=== PATIENT | male | born 1985 | race American Indian/Alaskan Native ===

== ENCOUNTER 2019-03-16 20:13 | Emergency (ER) | payer SELFPAY ==
[2019-03-16] MEDS ORDERED: NACL 0.9% 1000 ML 1,000 ML IV ONE ×2 (20:26)
[2019-03-16] MEDS ORDERED: NACL 0.9% 1000 ML 2,000 ML ONE (20:28)
--- NOTE | 2019-03-16 20:31 | Emergency Department Report ---
ED Head Trauma HPI - General Chief complaint: Weakness Stated complaint: DEHYDRATION Time Seen by Provider: 03/16/19 20:25 Source: patient, EMS Mode of arrival: Stretcher Limitations: No Limitations - History of Present Illness Initial comments: Mr. Mayer is a 33-year-old male with history of asthma who presents with closed head injury and muscle cramps today after a long day of playing basketball since 10 AM. He was playing in a basketball tournament. Prior to the injury he began cramping up. [place] dehydrated. He took an elbow to his right cheek. He immediately fell to the ground. Brief loss of consciousness. He's been drowsy ever since. Brought to emergency Department per EMS. He was tachycardic 115 beats a minute. EMS was unable to establish IV. EMS was unable to palpate a radial pulse. MD Complaint: head injury -: Sudden, This evening Mechanism of Injury: sports related injury Location: other (maxillary laceration) Loss of Consciousness: yes Previous Trauma to this Area: No Place: other (indoor basketball tournament) Severity: moderate Quality: dull Consistency: constant Provoking factors: none known, other (dehydration) Other Injuries: laceration Associated Symptoms: other (cramps drowsiness) - Related Data Allergies/Adverse reactions: Allergies Allergy/AdvReac Type Severity Reaction Status Date / Time No Known Allergies Allergy Verified 03/16/19 20:27 ED Review of Systems ROS: Stated complaint: DEHYDRATION Other details as noted in HPI Comment: All other systems reviewed and negative Constitutional: malaise. denies: fever Neurological: headache. denies: numbness, paresthesias ED Past Medical Hx - Past Medical History Previous Medical History?: Yes Hx Asthma: Yes - Surgical History Past Surgical History?: No - Social History Smoking Status: Current Every Day Smoker Substance Use Type: Marijuana ED Physical Exam - General Limitations: No Limitations General appearance: alert, in no apparent distress - Head Head exam: Present: atraumatic, normocephalic - Eye Eye exam: Absent: scleral icterus, conjunctival injection, nystagmus - ENT ENT exam: Present: mucous membranes moist - Neck Neck exam: Present: normal inspection, full ROM - Respiratory Respiratory exam: Present: normal lung sounds bilaterally. Absent: respiratory distress, wheezes, rales, rhonchi - Cardiovascular Cardiovascular Exam: Present: regular rate, normal rhythm, normal heart sounds. Absent: systolic murmur, diastolic murmur, rubs, gallop - GI/Abdominal GI/Abdominal exam: Present: soft, normal bowel sounds. Absent: distended, tenderness, guarding, rebound - Rectal Rectal exam: Present: deferred - Extremities Exam Extremities exam: Present: normal inspection - Back Exam Back exam: Present: normal inspection - Neurological Exam Neurological exam: Present: alert, oriented X3 - Psychiatric Psychiatric exam: Present: normal affect, normal mood - Skin Skin exam: Present: warm, dry, normal color, other (superficial 1.5 cm laceration right cheek). Absent: rash ED Course Vital Signs 03/16/19 03/16/19 03/16/19 20:22 20:30 22:51 Temperature 97.8 F Pulse Rate 84 93 H Respiratory 17 15 17 Rate Blood Pressure 123/93 123/68 [Left] O2 Sat by Pulse 96 98 97 Oximetry - Lab Data Result diagrams: 03/16/19 21:10 Lab Results 03/16/19 Range/Units 21:10 Sodium 138 (137-145) mmol/L Potassium 4.6 (3.6-5.0) mmol/L Chloride 100.7 (98-107) mmol/L Carbon Dioxide 22 (22-30) mmol/L Anion Gap 20 mmol/L BUN 20 (9-20) mg/dL Creatinine 1.2 (0.8-1.5) mg/dL Estimated GFR > 60 ml/min BUN/Creatinine Ratio 17 % Glucose 73 L (75-100) mg/dL Calcium 9.0 (8.4-10.2) mg/dL Total Creatine Kinase 642 H (55-170) units/L - Radiology Data Radiology results: report reviewed Ct head: NAP - Medical Decision Making 1. closed head injury CT head NAP 2. dehydration given IVF 3. superficial laceration right cheek wound care provided Critical care attestation.: If time is entered above; I have spent that time in minutes in the direct care of this critically ill patient, excluding procedure time. ED Disposition Clinical Impression: Closed head injury, Dehydration, Facial laceration Disposition: DC-01 TO HOME OR SELFCARE Is pt being admited?: No Does the pt Need Aspirin: No Condition: Stable Instructions: Minor Head Injury (ED), Laceration (ED), Dehydration (ED)
[2019-03-16] MEDS ORDERED: TYLENOL PO ONE (20:34)
--- NOTE | 2019-03-16 21:23 | Cat Scan Report ---
CT HEAD WITHOUT CONTRAST INDICATION / CLINICAL INFORMATION: TRAUMA. HEAD INJURY . TECHNIQUE: All CT scans at this location are performed using CT dose reduction for ALARA by means of automated e xposure control. COMPARISON: None available. FINDINGS: HEMORRHAGE: No evidence of intracranial hemorrhage or extra-axial fluid collection. EXTRA-AXIAL SPACES: Cortical sulci, sylvian fissures and basilar cisterns have an unremarkable appear ance. VENTRICULAR SYSTEM: The ventricular system is of normal size and configuration. CEREBRAL PARENCHYMA: No areas of abnormal brain parenchymal attenuation are identified. There is no i ndication of recent infarction. MIDLINE SHIFT OR HERNIATION: There is no mass effect. CEREBELLUM / BRAINSTEM: Brainstem and cerebellum have an unremarkable appearance. INTRACRANIAL VESSELS:No abnormalities are identified on this noncontrast head CT. ORBITS: visualized portions of the orbits have an unremarkable appearance. SOFT TISSUES of HEAD: No significant abnormality. CALVARIUM: Evaluation of bone windows reveals no abnormalities. PARANASAL SINUSES / MASTOID AIR CELLS: Paranasal sinuses are free from inflammatory mucosal disease. Mastoid air cells are normally pneumatized. IMPRESSION: 1. Normal head CT without contrast. Signer Name: Emanuel De La O MD Signed: 03/16/2019 9:19 PM Workstation Name: [id number]
[2019-03-16 21:34] LABS: BUN/Creatinine Ratio 17; Blood Urea Nitrogen 20 mg/dL (9-20); Hemolysis Index 33
[2019-03-16] MEDS ORDERED: HYDROGEN PEROXIDE TP ONE (22:34)
[2019-03-16] MEDS ORDERED: HYDROGEN PEROXIDE ONE (22:35)
[2019-03-16 22:54] VITALS: BP 123/68
== END 2019-03-16 23:15 | disposition home or self-care (01) ==
LOC: ED 20:13
DX: S01.419A Laceration without foreign body of unspecified cheek and temporomandibular area, initial encounter (principal); E86.0 Dehydration; F17.200 Nicotine dependence, unspecified, uncomplicated; F12.10 Cannabis abuse, uncomplicated; J45.909 Unspecified asthma, uncomplicated; X58.XXXA Exposure to other specified factors, initial encounter; Y93.89 Activity, other specified; Y92.89 Other specified places as the place of occurrence of the external cause; Y99.8 Other external cause status
CPT/HCPCS: 36415; 70450; 80048; 82550; 96360; 99284; J7030